=== PATIENT | female | born 1980 | race Caucasian/White ===

== ENCOUNTER 2018-10-11 18:45 | Inpatient (IN) | payer MEDICAID, OTHER ==
[~2018-10-11] VITALS: Ht 152.4 cm; Wt 59.0 kg
[2018-10-11 02:00] VITALS: BP 119/78
[2018-10-11] MEDS ORDERED: SODIUM CHLORIDE 0.9% 1,000 ML IV ONE (19:58)
[2018-10-11] MEDS ORDERED: ONDANSETRON HCL 4MG/2ML INJ IV STA (19:58)
[2018-10-11 20:26] LABS: BASOPHILS % 0.2 % (0.0-2.0); EOSINOPHILS % 0.1 % (0.0-5.0); HEMATOCRIT. 42.1 % (36.0-48.0); HEMOGLOBIN. 14.2 g/dL (12.0-16.0); LYMPHOCYTES % 11.8 % (20.0-50.0); MEAN CORPUSCULAR HEMOGLOBIN 29.4 pg (28.0-32.0); MEAN CORPUSCULAR VOLUME 87.1 fL (81.0-99.0); MEAN PLATELET VOLUME 9.2 fl (7.4-10.4); NEUTROPHILS % 83.9 % (40.0-76.0); PLATELET 287 x1000/uL (130-400); RED BLOOD CELL COUNT 4.83 mill/uL (4.2-5.4); RED CELL DISTRIBUTION WIDTH 14.7 % (11.6-14.6)
[2018-10-11 20:32] LABS: CHLORIDE 105 mEq/L (98-107)
[2018-10-11 20:33] LABS: PROTHROMBIN TIME 10.4 sec (9.6-11.0)
[2018-10-11] MEDS ORDERED: MORPHINE SULFATE 4 MG/ML CPJ (NOT FOR IM USE) IV ONE ×2 (21:00→23:45)
[2018-10-11 21:01] LABS: CLARITY URINE CLEAR (CLEAR); COLOR URINE YELLOW (YELLOW); KETONES URINE 1+ (NEGATIVE); LEUKOCYTE ESTERASE URINE TRACE (NEGATIVE); NITRITE URINE NEGATIVE (NEGATIVE); OCCULT BLOOD URINE TRACE (NEGATIVE); PH URINE 6.5 (4.5-8.0); PROTEIN URINE NEGATIVE (NEGATIVE); SPECIFIC GRAVITY URINE 1.027 (1.005-1.030); UROBILINOGEN URINE 0.2 E.U./dL (0.2-1.0)
[2018-10-11] MEDS ORDERED: CEFTRIAXONE 1 G PREMIX 50 ML IV ONE (23:45)
[2018-10-12 01:55] VITALS: BP 119/78
[2018-10-12] MEDS ORDERED: DEXT 5%/0.45% NACL 1000ML 1,000 ML IV SCH (03:27)
[2018-10-12] MEDS ORDERED: ACETAMINOPHEN 650MG SUPP PR PRN (03:30)
[2018-10-12] MEDS ORDERED: MORPHINE SULFATE 2 MG/ML CPJ (NOT FOR IM USE) IV PRN (03:30)
[2018-10-12] MEDS ORDERED: ONDANSETRON HCL 4MG/2ML INJ IV PRN (03:30)
[2018-10-12 04:00] VITALS: BP 96/52
[2018-10-12] MEDS ORDERED: LEVOFLOXACIN 500MG PREMIX 100 ML IV SCH (05:00)
[2018-10-12] MEDS: METRONIDAZOLE 500 MG PREMIX 100 ML IV SCH ×2 (06:59→13:02)
[2018-10-12 08:00] VITALS: BP 105/67
[2018-10-12 12:30] VITALS: BP 107/70
[2018-10-12 14:39] VITALS: BP 107/70
== END 2018-10-12 15:06 | disposition home or self-care (01) | DRG 532 ==
LOC: ER 19:04 → 6EST 23:41 → ENRESERV 10-12 00:26
PROVIDERS: ADMIT Hospitalist; ATTEND Hospitalist
DX: N83.201 Unspecified ovarian cyst, right side (principal); D25.9 Leiomyoma of uterus, unspecified
CPT/HCPCS: 36415; 74176; 76830; 76856; 93970; 96374; 96375; 99285; J0696; J1956; J2270; J2405; J3490; J7030

== ENCOUNTER 2023-04-19 10:30 | Emergency (ER) | payer MEDICAID ==
[~2023-04-19] VITALS: Ht 160 cm; Wt 79.0 kg
[2023-04-19 10:32] VITALS: BP 155/133; RESP 20; TEMP 98; O2SAT 97
[2023-04-19 10:35] VITALS: PULSE 104
[2023-04-19] MEDS ORDERED: AMOX1TAB16 MT (12:39)
== END 2023-04-19 13:23 | disposition home or self-care (01) ==
LOC: ER 10:30
DX: S61.551A Open bite of right wrist, initial encounter (principal); W55.01XA Bitten by cat, initial encounter; Y93.89 Activity, other specified; Y92.89 Other specified places as the place of occurrence of the external cause; Y99.8 Other external cause status
CPT/HCPCS: 99283